=== PATIENT | female | born 1985 | race Caucasian/White ===

== ENCOUNTER 2022-08-15 22:54 | Emergency (ER) | payer BC ==
[~2022-08-15] VITALS: Ht 154.9 cm; Wt 78.6 kg
[2022-08-15 23:02] VITALS: BP 116/70
--- NOTE | 2022-08-15 23:16 | NUR ---
CONTACTED POISON CONTROL AND SPOKE WITH FINA, RECOMMENDED 6-8 HOURS OF OBSERVATION FROM TIME OF LAST INGESTION WHICH REPORTED BY PT. AND FRIEND WAS THE FLEXERIL TAKEN AT 1930 THIS EVENING. EKG AND NOT TO GIVE ROMAZICON FOR REVERSAL OF CLONIPINE ALSO RECOMMENDED.
[2022-08-15 23:37] LABS: BASOPHILS # (AUTO) 0.1 X10'3 (0-0.2); BASOPHILS % (AUTO) 0.6 % (0-1); EOSINOPHILS # (AUTO) 0.1 X10'3 (0-0.9); EOSINOPHILS % (AUTO) 1.3 % (0-6); HEMOGLOBIN 13.9 g/dl (12.0-16.0); LYMPHOCYTES # (AUTO) 2.1 X10'3 (1.1-4.8); LYMPHOCYTES % (AUTO) 21.8 % (21-51); MEAN CORPUSCULAR HEMOGLOBIN 31.1 PG (27.0-31.0); MEAN CORPUSCULAR HGB CONC 33.8 g/dL (33.0-36.5); MEAN PLATELET VOLUME 8.1 FL (7.4-10.4); MONOCYTES # (AUTO) 0.6 X10'3 (0-0.9); MONOCYTES % (AUTO) 6.2 % (2-12); NEUTROPHILS # (AUTO) 6.7 X10'3 (1.8-7.7); NEUTROPHILS % (AUTO) 70.1 % (42-75); PLATELET COUNT 351 X10'3 (140-440); RED BLOOD COUNT 4.46 X10'6 (4.20-5.60); WHITE BLOOD COUNT 9.5 X10'3 (4.5-11.0)
[2022-08-15 23:52] LABS: ALANINE AMINOTRANSFERASE 29 U/L (12-78); ALBUMIN 3.7 G/DL (3.4-5.0); ALKALINE PHOSPHATASE 63 IU/L (46-116); ANION GAP 5 (8-16); ASPARTATE AMINO TRANSFERASE 12 U/L (10-37); BILIRUBIN,TOTAL 0.2 MG/DL (0.1-1.0); BLOOD UREA NITROGEN 14 MG/DL (7-18); CALCIUM 8.2 MG/DL (8.5-10.1); CHLORIDE 106 MMOL/L (99-107); CREATININE 1.08 MG/DL (0.40-0.90); GLUCOSE 150 MG/DL (70-104); POTASSIUM 3.7 MMOL/L (3.5-5.1); SODIUM 139 MMOL/L (135-145); TOTAL CARBON DIOXIDE 27.7 MMOL/L (24-32); TOTAL PROTEIN 7.3 G/DL (6.4-8.2); eGFR 57 ML/MIN
[2022-08-15 23:55] LABS: ETHANOL < 0.010 GM/DL (0.0-0.010)
[2022-08-16] MEDS ORDERED: flexeril (00:08)
[2022-08-16] MEDS ORDERED: lorazepam PO (00:11)
[2022-08-16] MEDS ORDERED: wellbutrin (00:12)
[2022-08-16] MEDS ORDERED: [UNRECOGNIZED DRUG - OTHER] (00:15)
[2022-08-16] MEDS ORDERED: tessalon PO (00:15)
[2022-08-16] MEDS ORDERED: klonopin PO (00:16)
[2022-08-16] MEDS ORDERED: [UNRECOGNIZED DRUG - OTHER] (00:19)
--- NOTE | 2022-08-16 01:21 | NUR ---
PATIENT WANTS TO LEAVE, MADE AWARE, PATIENT ADVISED OF USUAL [facility] PROCESS
[2022-08-16] MEDS ORDERED: normal saline 1000ml 1,000 ML IV ONE (01:25)
--- NOTE | 2022-08-16 02:42 | NUR ---
per pt Malina García information can be given over the phone to Alona Dorantes her friend, her number is [phone].
[2022-08-16 02:55] LABS: URINE HCG NEGATIVE (NEG)
[2022-08-16 03:07] LABS: URINE AMPHETAMINE SCREEN NEGATIVE (Neg); URINE BARBITUATE SCREEN NEGATIVE (Neg); URINE BENZODIAZEPINES SCREEN NEGATIVE (Neg); URINE CANNABINOID SCREEN POSITIVE (Neg); URINE COCAINE SCREEN NEGATIVE (Neg); URINE METHADONE SCREEN NEGATIVE (Neg); URINE OPIATE SCREEN NEGATIVE (Neg); URINE PHENCYCLIDINE SCREEN NEGATIVE (Neg)
[2022-08-16] MEDS: normal saline 1000ml 1,000 ML IV SCH ×2 (04:11→10:15)
--- NOTE | 2022-08-16 07:22 | NUR ---
patient sleeping. no distress noted.
--- NOTE | 2022-08-16 09:00 | NUR ---
patient sleeping. no change in condition.
--- NOTE | 2022-08-16 11:20 | NUR ---
friend in room with patient.
--- NOTE | 2022-08-16 13:31 | NUR ---
belongings reeturned to patient and dc instructions reviewed.
== END 2022-08-16 13:34 | disposition home or self-care (01) ==
LOC: ER 22:55
DX: T42.4X2A Poisoning by benzodiazepines, intentional self-harm, initial encounter (principal); T48.1X2A Poisoning by skeletal muscle relaxants [neuromuscular blocking agents], intentional self-harm, initial encounter; T40.712A Poisoning by cannabis, intentional self-harm, initial encounter; R41.82 Altered mental status, unspecified; F41.9 Anxiety disorder, unspecified
CPT/HCPCS: 36415; 80053; 80305; 80320; 81025; 85025; 96360; 99285; J7030